=== PATIENT | female | born 1965 | race Caucasian/White ===

== ENCOUNTER 2018-04-11 06:58 | Inpatient (IN) ==
[2018-04-11] MEDS ORDERED: Acetaminophen 325 MG Tablet PO PRN (14:22)
[2018-04-11] MEDS ORDERED: Bisacodyl 10 MG Supp RECTAL PRN (14:22)
[2018-04-11] MEDS ORDERED: Temazepam 15 MG Capsule PO PRN (14:22)
--- NOTE | 2018-04-11 14:22 | P.HP ---
History of Present Illness Primary Care Physician: Gordon Silver MD Chief Complaint: Abdominal pain History of Present Illness: This is a pleasant 53 y/o female who came to ER with Abdominal pain, she was already seen in ER and sent home, About 9 days ago, she developed left lower quadrant pain. She saw her primary physician 1 week ago and was started on ciprofloxacin. 2 days ago, she came to the emergency department with continued pain. Imaging revealed mild diverticulitis. The patient states that 2 nights ago, she had a fever of 101. She is not sure if she had a fever last night. She states that the pain increased yesterday. She states that she has not had a bowel movement for the last few days. She denies associated cough, congestion, vomiting, diarrhea. No melena or hematochezia. No urinary urgency, frequency, dysuria, hematuria. She states that she had one leftover hydrocodone from a prior ankle surgery and took that, otherwise she has been taking Tylenol for pain. She has been compliant with the ciprofloxacin and Flagyl including this morning. Symptoms are moderate in severity. Onset gradual. The pain is aggravated by touch and movement. The pain has now spread to diffusely across the lower abdomen. Transferred to [facility] continue antibiotics and will have evaluation by General Surgery Inpatient Certification: I certify that the inpatient services were ordered in accordance with Medicare regulations governing the order. This includes certification that hospital inpatient services are reasonable and necessary and in the case of services not specified as inpatient-only under 42 CFR 419.22(n), that they are appropriately provided as inpatient services in accordance to with the 2-midnight benchmark under 43 CFR 412.3(e) Review of Systems All other systems reviewed negative except as stated in HPI [facility] - History History Provided By: Patient - Medical History Medical History: Medical History (Last Reviewed 04/11/18 @ 07:29 by Emily Martinez MD) Asthma H/O: hysterectomy High cholesterol - Surgical History Surgical History: Surgical History (Last Reviewed 04/11/18 @ 07:29 by Emily Martinez MD) Hx of appendectomy Hx of tonsillectomy - Tobacco History Second Hand Smoke Exposure: No Smoking Status: Never smoker - Alcohol History How Often Do You Have a Drink Containing Alcohol: Monthly or less - Substance Use History Substance History: No History of Abuse - Immunization History Tetanus Immunization: Unsure Hx Influenza Vaccine This Season: Yes Medications and Allergies Allergies Allergy/AdvReac Type Severity Reaction Status Date / Time Penicillins Allergy Nausea Verified 04/11/18 07:17 Sulfa (Sulfonamide Allergy Nausea Verified 04/11/18 07:17 Antibiotics) Home Medications Medication Instructions Recorded Confirmed Type celecoxib [Celebrex] 200 mg PO DAILY 04/09/18 04/09/18 History fluticasone-vilanterol [Breo 1 inh INHALATION DAILY 04/09/18 04/09/18 History Ellipta] montelukast [Singulair] 10 mg PO QPM 04/09/18 04/09/18 History simvastatin 10 mg PO QPM 04/09/18 04/09/18 History Exam Vital signs: Vital Signs 04/11/18 14:01 Temperature 99.2 F Pulse Rate 112 H Respiratory Rate 18 Blood Pressure 115/56 L Pulse Oximetry 96 Narrative: GENERAL: Alert, well nourished, well appearing patient resting on the bed in no acute distress. SKIN: Focused skin assessment warm/dry. HEAD: Atraumatic. Normocephalic. EYES: Pupils equal and round. No scleral icterus. No injection or drainage. ENT: No nasal bleeding or discharge. Mucous membranes pink and moist. NECK: Trachea midline. No JVD. Spontaneous, painless full range of motion with no meningismus CARDIOVASCULAR: Tachycardic with a regular rhythm. No murmur appreciated. Extremities warm and well perfused with bounding peripheral pulses RESPIRATORY: No accessory muscle use. Clear to auscultation. Breath sounds equal bilaterally. Breathing easily and speaking in full sentences GASTROINTESTINAL: Abdomen soft, tender in left lower quadrant, less so in suprapubic region and right lower quadrant, nondistended. Normal bowel sounds. No rigid, rebound. MUSCULOSKELETAL: No obvious deformities. No clubbing. No cyanosis. No edema. Compartments are soft NEUROLOGICAL: Awake and alert. No obvious cranial nerve deficits. Motor grossly within normal limits. Normal speech. Sensation intact. Normal gait PSYCHIATRIC: Appropriate mood and affect; insight and judgment normal. Results - Imaging Abdomen/Pelvis CT 04/11/18 07:17 CONCLUSION: 1. Findings most consistent with proximal sigmoid diverticulitis with developing anterior perisigmoid abscess measuring 2.4 x 0.9 cm. A second 1.5 x 1.2 cm posterior collection slightly more inferiorly likely reflects a developing intramural abscess. Caprini VTE Risk Assessment Caprini VTE Risk Assessment: No/Low Risk (score <= 1) Caprini Risk Assessment Model: Point Value = 1 Point Value = 2 Point Value = 3 Point Value = 5 Age 41-60 Minor surgery BMI > 25 kg/m2 Swollen legs Varicose veins or History of unexplained or recurrent spontaneous Oral contraceptives or hormone replacement Sepsis (< 1 month) Serious lung disease, including pneumonia (< 1 month) Abnormal pulmonary function Acute myocardial infarction Congestive heart failure (< 1 month) History of inflammatory bowel disease Medical patient at bed rest Age 61-74 Arthroscopic surgery Major open surgery (> 45 min) Laparoscopic surgery (> 45 min) Malignancy Confined to bed (> 72 hours) Immobilizing plaster cast Central venous access Age >= 75 History of VTE Family history of VTE Factor V Leiden Prothrombin [id number] Lupus anticoagulant Anticardiolipin antibodies Elevated serum homocysteine Heparin-induced thrombocytopenia Other congenital or acquired thrombophilia Stroke (< 1 month) Elective arthroplasty Hip, pelvis, or leg fracture Acute spinal cord injury (< 1 month) Prophylaxis Regimen: Total Risk Factor Score Risk Level Prophylaxis Regimen 0-1 Low Early ambulation 2 Moderate Order ONE of the following: *Sequential Compression Device (SCD) *Heparin 5000 units SQ BID 3-4 Higher Order ONE of the following medications: *Heparin 5000 units SQ TID *Enoxaparin/Lovenox 40 mg SQ daily (WT < 150 kg, CrCl > 30 mL/min) *Enoxaparin/Lovenox 30 mg SQ daily (WT < 150 kg, CrCl > 10-29 mL/min) *Enoxaparin/Lovenox 30 mg SQ BID (WT < 150 kg, CrCl > 30 mL/min) AND/OR *Sequential Compression Device (SCD) 5 or more Highest Order ONE of the following medications: *Heparin 5000 units SQ TID (Preferred with Epidurals) *Enoxaparin/Lovenox 40 mg SQ daily (WT < 150 kg, CrCl > 30 mL/min) *Enoxaparin/Lovenox 30 mg SQ daily (WT < 150 kg, CrCl > 10-29 mL/min) *Enoxaparin/Lovenox 30 mg SQ BID (WT < 150 kg, CrCl > 30 mL/min) AND *Sequential Compression Device (SCD) Assessment and Plan - Plan 1. Diverticulitis of intestine with abscess Case discussed between ER specialist at [facility] with General database specialist doctor and recommended for transfer to main hospital for evaluation, with diagnosis of Diverticulitis. WBC 13.6 Hemoglobin 12.2, CT abdomen and pelvis Findings most consistent with proximal sigmoid diverticulitis with developing anterior perisigmoid abscess measuring 2.4 x 0.9 cm. A second 1.5 x 1.2 cm posterior collection slightly more inferiorly likely reflects a developing intramural abscess. will continue Flagyl and Cipro and following blood cultures Continue Pain medicine. 2. Hyperlipidemia continue Home medicine DVT prophylaxis with SCDs for possible procedure. Code Status: Full code. Discussed Condition With: patient, Nurse and ER Physician Doctor Emily Martinez Discharge Planning: Once cleared by General Surgery.
[2018-04-11] MEDS ORDERED: *morphine SULFATE 2 MG/ML PERIprocedure ONLY IV.PUSH PRN (14:32)
[2018-04-11] MEDS ORDERED: Ciprofloxacin 200 MG/100 ML 200 MG/100 ML PIGGYBACK IV.SIG SCH (15:00)
[2018-04-11] MEDS: Sod Chloride 0.9% Inj 1,000 ML IV.CONT SCH (15:03)
[2018-04-11] MEDS: Ciprofloxacin 200 MG/100 ML 200 MG/100 ML PIGGYBACK IV.SIG SCH (16:00)
[2018-04-11] MEDS: Morphine Sulfate Inj 2 MG/ML Vial IV.PUSH PRN ×3 (16:00→23:42)
[2018-04-11 20:04] LABS: Chol/HDL Ratio 2.4 Ratio; HDL Cholesterol 42.5 mg/dL (40.0-60.0)
--- NOTE | 2018-04-11 21:51 | P.PNCS ---
Subjective Colorectal Surgery Post Op Day #: 0 Interval history: Reviewed events - several days of LLQ, worse while on Ab's CT shows microperferation, small abscess No N/V min fever +F Hx colon cancer Objective Objective Remarks: Pe alert Abd - soft, tender LLQ, no mass, min tympany Assessment and Plan - Plan Imp: Diverticulitis - small abscess should respond to Ab's, no drainable abscess now adv diet Decr IVF may switch to PO ab's later, will hopefully avoid surgery Last colon several yrs ago - neg
[2018-04-12] MEDS: Ciprofloxacin 200 MG/100 ML 200 MG/100 ML PIGGYBACK IV.SIG SCH ×2 (04:31→15:28)
[2018-04-12] MEDS: Morphine Sulfate Inj 2 MG/ML Vial IV.PUSH PRN ×4 (04:36→21:43)
[2018-04-12] MEDS: Sod Chloride 0.9% Inj 1,000 ML IV.CONT SCH ×2 (04:42→14:11)
[2018-04-12 05:06] LABS: Baso % (Auto) 0.3 % (0.0-2.0); Eos # (Auto) 0.2 th/mm3 (0.0-0.4); Eos % (Auto) 2.5 % (0.0-4.0); Lymph # (Auto) 1.2 th/mm3 (1.0-4.8); Lymph % (Auto) 13.1 % (9.0-44.0); Mean Corpuscular HGB Conc 33.4 % (32.0-36.0); Mean Corpuscular Hemoglobin 27.4 pg (27.0-34.0); Mean Corpuscular Volume 81.9 fL (80.0-100.0); Mean Platelet Volume 9.2 fL (7.0-11.0); Mono # (Auto) 0.4 th/mm3 (0.0-0.9); Mono % (Auto) 4.4 % (0.0-8.0); Neut # (Auto) 7.4 th/mm3 (1.8-7.7); Neut % (Auto) 79.7 % (16.0-70.0); Platelet Count 191 th/mm3 (150-450); Red Blood Count 3.66 mil/mm3 (4.00-5.30); Red Cell Distribution Width 17.6 % (11.6-17.2); White Blood Count 9.3 th/mm3 (4.0-11.0)
[2018-04-12 05:38] LABS: Alanine Aminotransferase 25 U/L (10-53); Albumin 2.4 g/dL (3.4-5.0); Anion Gap 8 meq/L (5-15); Aspartate Aminotransferase 13 U/L (15-37); Blood Urea Nitrogen 6 mg/dL (7-18); Calcium 7.7 mg/dL (8.5-10.1); Carbon Dioxide 24.2 meq/L (21.0-32.0); Chloride 108 meq/L (98-107); Glomerular Filtration Rate Greater Than 89 mL/min (>89); Glucose,Random 91 mg/dL (74-106); Potassium 3.8 meq/L (3.5-5.1); Sodium 140 meq/L (136-145)
[2018-04-12 05:41] LABS: Alkaline Phosphatase 88 U/L (45-117)
--- NOTE | 2018-04-12 11:22 | P.PN ---
Subjective Interval history: This is a pleasant 53 y/o female who came to ER with Abdominal pain, she was already seen in ER and sent home, About 9 days ago, she developed left lower quadrant pain. She saw her primary physician 1 week ago and was started on ciprofloxacin. 2 days ago, she came to the emergency department with continued pain. Imaging revealed mild diverticulitis. The patient states that 2 nights ago, she had a fever of 101. She is not sure if she had a fever last night. She states that the pain increased yesterday. She states that she has not had a bowel movement for the last few days. She denies associated cough, congestion, vomiting, diarrhea. No melena or hematochezia. No urinary urgency, frequency, dysuria, hematuria. She states that she had one leftover hydrocodone from a prior ankle surgery and took that, otherwise she has been taking Tylenol for pain. She has been compliant with the ciprofloxacin and Flagyl including this morning. Symptoms are moderate in severity. Onset gradual. The pain is aggravated by touch and movement. The pain has now spread to diffusely across the lower abdomen. Transferred to [facility] continue antibiotics and will have evaluation by General Surgery 04/12: Seen in her bedroom, status post General telesales specialist evaluation, recommended to continue antibiotics, no drainable abscess, advanced diet as tolerated. avoid surgery. Physical Exam Vital signs: Vital Signs 04/11/18 14:01 04/11/18 16:00 04/11/18 16:02 Temperature 99.2 F 98.9 F Pulse Rate 112 H 115 H Respiratory Rate 18 18 18 Blood Pressure 115/56 L 117/58 L Pulse Oximetry 96 97 04/11/18 20:00 04/12/18 00:00 04/12/18 01:00 Temperature 99.4 F 99.7 F H Pulse Rate 109 H 106 H Respiratory Rate 17 17 16 Blood Pressure 112/56 L 103/55 L Pulse Oximetry 96 97 04/12/18 04:00 04/12/18 07:05 04/12/18 07:41 Temperature 98.4 F 97.8 F Pulse Rate 93 H 102 H 90 Respiratory Rate 16 16 18 Blood Pressure 101/59 L 108/55 L Pulse Oximetry 96 94 L Intake & Output 04/11/18 04/12/18 04/12/18 18:59 06:59 18:59 Intake Total 200 / 200 1100 / 1100 Balance 200 / 200 1100 / 1100 Intake: IV 200 / 200 1100 / 1100 NS Inj 1,000 ML @ 75 mls/hr IV. 1000 / 1000 CONT .[id number] LEÓN Rx#:[id number] Cipro 200 MG/100 ML Inj 200 mg 100 / 100 In 100 ml @ 100 mls/hr IV.SIG Q12H LEÓN Rx#:[id number] Flagyl 500 MG Inj 100 ML @ 100 100 / 100 100 / 100 mls/hr IV.SIG Q8H LEÓN Rx#: [id number] Other: # Voids 1 2 Date of Last Bowel Movement 04/09/18 04/09/18 Narrative: GENERAL: Alert, well nourished, well appearing patient resting on the bed in no acute distress. SKIN: Focused skin assessment warm/dry. HEAD: Atraumatic. Normocephalic. EYES: Pupils equal and round. No scleral icterus. No injection or drainage. ENT: No nasal bleeding or discharge. Mucous membranes pink and moist. NECK: Trachea midline. No JVD. Spontaneous, painless full range of motion with no meningismus CARDIOVASCULAR: Tachycardic with a regular rhythm. No murmur appreciated. Extremities warm and well perfused with bounding peripheral pulses RESPIRATORY: No accessory muscle use. Clear to auscultation. Breath sounds equal bilaterally. Breathing easily and speaking in full sentences GASTROINTESTINAL: Abdomen soft, tender in left lower quadrant, less so in suprapubic region and right lower quadrant, nondistended. Normal bowel sounds. MUSCULOSKELETAL: No obvious deformities. No clubbing. No cyanosis. No edema. Compartments are soft NEUROLOGICAL: Awake and alert. No obvious cranial nerve deficits. Motor grossly within normal limits. Normal speech. Sensation intact. Normal gait PSYCHIATRIC: Appropriate mood and affect; insight and judgment normal. Results - Labs CBC & Chem 7: 04/12/18 04:11 04/12/18 04:11 Laboratory Results - last 24 hr 04/11/18 04/11/18 04/12/18 18:45 18:45 04:11 WBC 9.3 RBC 3.66 L Hgb 10.0 L D Hct 30.0 L MCV 81.9 MCH 27.4 MCHC 33.4 RDW 17.6 H Plt Count 191 MPV 9.2 Neut % (Auto) 79.7 H Lymph % (Auto) 13.1 [place] % (Auto) 4.4 Eos % (Auto) 2.5 Baso % (Auto) 0.3 Neut # (Auto) 7.4 Lymph # (Auto) 1.2 [place] # (Auto) 0.4 Eos # (Auto) 0.2 Baso # (Auto) 0.0 WBC Differential . Differential Comment Auto diff final Sodium Potassium Chloride Carbon Dioxide Anion Gap BUN Creatinine Estimated GFR Random Glucose Calcium Total Bilirubin AST ALT Alkaline Phosphatase Total Protein Albumin Triglycerides 62 Cholesterol 102 L LDL Cholesterol, Calc 47 HDL Cholesterol 42.5 Cholesterol/HDL Ratio 2.40 Vitamin B12 465 TSH 2.430 04/12/18 04:11 WBC RBC Hgb Hct MCV MCH MCHC RDW Plt Count MPV Neut % (Auto) Lymph % (Auto) [place] % (Auto) Eos % (Auto) Baso % (Auto) Neut # (Auto) Lymph # (Auto) [place] # (Auto) Eos # (Auto) Baso # (Auto) WBC Differential Differential Comment Sodium 140 Potassium 3.8 Chloride 108 H Carbon Dioxide 24.2 Anion Gap 8 BUN 6 L Creatinine 0.65 Estimated GFR Greater than 89 Random Glucose 91 Calcium 7.7 L D Total Bilirubin 0.5 AST 13 L ALT 25 Alkaline Phosphatase 88 Total Protein 6.0 L D Albumin 2.4 L D Triglycerides Cholesterol LDL Cholesterol, Calc HDL Cholesterol Cholesterol/HDL Ratio Vitamin B12 TSH - Imaging Abdomen/Pelvis CT 04/11/18 07:17 CONCLUSION: 1. Findings most consistent with proximal sigmoid diverticulitis with developing anterior perisigmoid abscess measuring 2.4 x 0.9 cm. A second 1.5 x 1.2 cm posterior collection slightly more inferiorly likely reflects a developing intramural abscess. Assessment and Plan - Plan 1. Diverticulitis of intestine with abscess Case discussed between ER specialist at [facility] [place] with General telesales specialist doctor Arvizu and recommended for transfer to [facility] for evaluation, with diagnosis of Diverticulitis. WBC 13.6 Hemoglobin 12.2, CT abdomen and pelvis Findings most consistent with proximal sigmoid diverticulitis with developing anterior perisigmoid abscess measuring 2.4 x 0.9 cm. A second 1.5 x 1.2 cm posterior collection slightly more inferiorly likely reflects a developing intramural abscess. will continue Flagyl and Cipro and following blood cultures Continue Pain medicine. at this time stable seen in her bedroom, non drainable abscess as per general telesales specialist, continue antibiotics and advance diet. 2. Hyperlipidemia continue Home medicine DVT prophylaxis with SCDs for possible procedure. Code Status: Full Code. Discussed Condition With: Patient and her in the room. Discharge Planning: Expected for tomorrow
[2018-04-12 14:31] LABS: Hemoglobin A1c 5.9 % (4.3-6.0)
--- NOTE | 2018-04-12 22:53 | P.PNCS ---
Subjective Colorectal Surgery Post Op Day #: 0 Interval history: afebrile, VSS UO good more comfortable elinor PO Objective Result Diagrams: 04/12/18 04:11 04/12/18 04:11 Objective Remarks: Pe alert Abd - soft, less tender LLQ, no mass, min tympany Assessment and Plan - Plan Imp: Diverticulitis - small abscess should respond to Ab's, no drainable abscess now adv diet Decr IVF rto if DC'd home may switch to PO ab's tomorrow
[2018-04-13] MEDS: Morphine Sulfate Inj 2 MG/ML Vial IV.PUSH PRN ×2 (03:27→11:15)
[2018-04-13] MEDS: Ciprofloxacin 200 MG/100 ML 200 MG/100 ML PIGGYBACK IV.SIG SCH (03:27)
--- NOTE | 2018-04-13 11:00 | P.PN ---
Subjective Interval history: This is a pleasant 53 y/o female who came to ER with Abdominal pain, she was already seen in ER and sent home, About 9 days ago, she developed left lower quadrant pain. She saw her primary physician 1 week ago and was started on ciprofloxacin. 2 days ago, she came to the emergency department with continued pain. Imaging revealed mild diverticulitis. The patient states that 2 nights ago, she had a fever of 101. She is not sure if she had a fever last night. She states that the pain increased yesterday. She states that she has not had a bowel movement for the last few days. She denies associated cough, congestion, vomiting, diarrhea. No melena or hematochezia. No urinary urgency, frequency, dysuria, hematuria. She states that she had one leftover hydrocodone from a prior ankle surgery and took that, otherwise she has been taking Tylenol for pain. She has been compliant with the ciprofloxacin and Flagyl including this morning. Symptoms are moderate in severity. Onset gradual. The pain is aggravated by touch and movement. The pain has now spread to diffusely across the lower abdomen. Transferred to [facility] continue antibiotics and will have evaluation by General Surgery 04/12: Seen in her bedroom, status post General client care specialist evaluation, recommended to continue antibiotics, no drainable abscess, advanced diet as tolerated. avoid surgery. 04/13: Stable in her bedroom, continue with some pain, not able to be discharged today, will continue IV antibiotics for 24 hours more and follow in am tomorrow if improving more will go home on by mouth antibiotics, no nausea, vomit or diarrhea. Physical Exam Vital signs: Vital Signs 04/12/18 11:35 04/12/18 14:23 04/12/18 16:00 Temperature 98.2 F 98.4 F Pulse Rate 94 H 89 Respiratory Rate 18 18 Blood Pressure 105/57 L 104/57 L Pulse Oximetry 95 97 04/12/18 20:00 04/13/18 00:00 04/13/18 04:00 Temperature 98.3 F 98.8 F 98.3 F Pulse Rate 88 95 H 88 Respiratory Rate 16 17 17 Blood Pressure 122/54 L 107/56 L 120/58 L Pulse Oximetry 98 98 97 04/13/18 08:00 Temperature 97.8 F Pulse Rate 90 Respiratory Rate 16 Blood Pressure 139/60 Pulse Oximetry 98 Intake & Output 04/12/18 04/13/18 04/13/18 18:59 06:59 18:59 Intake Total 1400 / 1400 200 / 200 100 / 100 Balance 1400 / 1400 200 / 200 100 / 100 Intake: IV 600 / 600 200 / 200 100 / 100 NS Inj 1,000 ML @ 60 mls/hr IV. 300 / 300 CONT .[id number] LEÓN Rx#:[id number] Cipro 200 MG/100 ML Inj 200 mg 100 / 100 100 / 100 In 100 ml @ 100 mls/hr IV.SIG Q12H LEÓN Rx#:[id number] Flagyl 500 MG Inj 100 ML @ 100 200 / 200 100 / 100 100 / 100 mls/hr IV.SIG Q8H LEÓN Rx#: [id number] Oral 800 / 800 Other: # Voids 3 2 1 Date of Last Bowel Movement 04/09/18 04/09/18 Narrative: GENERAL: No acute distress. SKIN: Focused skin assessment warm/dry. HEAD: Atraumatic. Normocephalic. EYES: Pupils equal and round. No scleral icterus. No injection or drainage. ENT: No nasal bleeding or discharge. Mucous membranes pink and moist. NECK: Trachea midline. No JVD. CARDIOVASCULAR: normal sinus rhythm, S1, S2 no S3. RESPIRATORY: Breath sounds equal bilaterally. GASTROINTESTINAL: Abdomen soft, tender on palpation on lower abdominal and pelvic quadrants. MUSCULOSKELETAL: No obvious deformities. No clubbing. No cyanosis. No edema. Compartments are soft NEUROLOGICAL: No focal deficits. Results - Labs CBC & Chem 7: 04/12/18 04:11 04/12/18 04:11 Laboratory Results - last 24 hr 04/11/18 18:45 Hemoglobin A1c 5.9 Assessment and Plan - Plan 1. Diverticulitis of intestine with abscess Case discussed between ER specialist at [place] [facility] with General client care specialist doctor and recommended for transfer to [facility] for evaluation, with diagnosis of Diverticulitis. WBC 13.6 Hemoglobin 12.2, CT abdomen and pelvis Findings most consistent with proximal sigmoid diverticulitis with developing anterior perisigmoid abscess measuring 2.4 x 0.9 cm. A second 1.5 x 1.2 cm posterior collection slightly more inferiorly likely reflects a developing intramural abscess. will continue Flagyl and Cipro and following blood cultures Continue Pain medicine. at this time stable seen in her bedroom, non drainable abscess as per general client care specialist, continue antibiotics and advance diet. 2. Hyperlipidemia continue Home medicine DVT prophylaxis with SCDs for possible procedure. Code Status: Full code. Discussed Condition With: patient, her in the room. Discharge Planning: Expected for tomorrow.
[2018-04-13] MEDS ORDERED: Ciprofloxacin 200 MG/100 ML 200 MG/100 ML PIGGYBACK IV.SIG ONE (12:00)
[2018-04-13] MEDS ORDERED: Ciprofloxacin 400 MG/200 ML 400 MG/200 ML PIGGYBACK IV.SIG SCH ×2 (17:00→21:00)
[2018-04-13] MEDS: Sod Chloride 0.9% Inj 1,000 ML IV.CONT SCH (22:36)
[2018-04-13] MEDS: Zolpidem Tartrate 5 MG Tablet PO PRN (23:05)
[2018-04-14] MEDS: Sod Chloride 0.9% Inj 1,000 ML IV.CONT SCH ×4 (01:02→22:30)
--- NOTE | 2018-04-14 12:15 | P.PN ---
Subjective Interval history: This is a pleasant 53 y/o female who came to ER with Abdominal pain, she was already seen in ER and sent home, About 9 days ago, she developed left lower quadrant pain. She saw her primary physician 1 week ago and was started on ciprofloxacin. 2 days ago, she came to the emergency department with continued pain. Imaging revealed mild diverticulitis. The patient states that 2 nights ago, she had a fever of 101. She is not sure if she had a fever last night. She states that the pain increased yesterday. She states that she has not had a bowel movement for the last few days. She denies associated cough, congestion, vomiting, diarrhea. No melena or hematochezia. No urinary urgency, frequency, dysuria, hematuria. She states that she had one leftover hydrocodone from a prior ankle surgery and took that, otherwise she has been taking Tylenol for pain. She has been compliant with the ciprofloxacin and Flagyl including this morning. Symptoms are moderate in severity. Onset gradual. The pain is aggravated by touch and movement. The pain has now spread to diffusely across the lower abdomen. Transferred to [facility] continue antibiotics and will have evaluation by General Surgery 04/12: Seen in her bedroom, status post General cardiopulmonary specialist evaluation, recommended to continue antibiotics, no drainable abscess, advanced diet as tolerated. avoid surgery. 04/13: Stable in her bedroom, continue with some pain, not able to be discharged today, will continue IV antibiotics for 24 hours more and follow in am tomorrow if improving more will go home on by mouth antibiotics. 04/14: patient states continue in pain, discussed with nurse and patient and after surgical evaluation for today recommended to remain in house another day. no nausea, vomit or diarrhea. Physical Exam Vital signs: Vital Signs 04/13/18 16:00 04/13/18 20:00 04/14/18 00:00 Temperature 99.0 F 98.1 F 98 F Pulse Rate 88 81 92 H Respiratory Rate 16 18 18 Blood Pressure 114/53 L 119/55 L 113/59 L Pulse Oximetry 97 96 96 04/14/18 04:00 04/14/18 08:00 Temperature 98 F 97.8 F Pulse Rate 80 88 Respiratory Rate 18 16 Blood Pressure 123/55 L 115/55 L Pulse Oximetry 94 L 97 Intake & Output 04/13/18 04/14/18 04/14/18 18:59 06:59 18:59 Intake Total 700 / 700 1400 / 1400 100 / 100 Balance 700 / 700 1400 / 1400 100 / 100 Weight 68.2 kg Intake: IV 100 / 100 1000 / 1000 100 / 100 NS Inj 1,000 ML @ 60 mls/hr IV. 700 / 700 CONT .[id number] LEÓN Rx#:[id number] Rocephin Inj 1,000 MG In NS Inj 100 / 100 100 ML @ 200 mls/hr IV.SIG Q24H LEÓN Rx#:[id number] Flagyl 500 MG Inj 100 ML @ 100 100 / 100 200 / 200 100 / 100 mls/hr IV.SIG Q8H LEÓN Rx#: [id number] Oral 600 / 600 400 / 400 Other: # Voids 1 4 1 Date of Last Bowel Movement 04/09/18 04/13/18 04/11/18 # Bowel Movements 1 1 Narrative: GENERAL: No acute distress. SKIN: Focused skin assessment warm/dry. HEAD: Atraumatic. Normocephalic. EYES: Pupils equal and round. No scleral icterus. No injection or drainage. ENT: No nasal bleeding or discharge. Mucous membranes pink and moist. NECK: Trachea midline. No JVD. CARDIOVASCULAR: normal sinus rhythm, S1, S2 no S3. RESPIRATORY: Breath sounds equal bilaterally. GASTROINTESTINAL: Abdomen soft, tender on palpation on lower abdominal and pelvic quadrants. MUSCULOSKELETAL: No obvious deformities. No clubbing. No cyanosis. No edema. Compartments are soft NEUROLOGICAL: No focal deficits. Results - Labs CBC & Chem 7: 04/12/18 04:11 04/12/18 04:11 Assessment and Plan - Plan 1. Diverticulitis of intestine with abscess Case discussed between ER specialist at [facility] with General cardiopulmonary specialist doctor and recommended for transfer to [facility] for evaluation, with diagnosis of Diverticulitis. WBC 13.6 Hemoglobin 12.2, CT abdomen and pelvis Findings most consistent with proximal sigmoid diverticulitis with developing anterior perisigmoid abscess measuring 2.4 x 0.9 cm. A second 1.5 x 1.2 cm posterior collection slightly more inferiorly likely reflects a developing intramural abscess. will continue Flagyl and Cipro and following blood cultures Continue Pain medicine. at this time stable seen in her bedroom, non drainable abscess as per general cardiopulmonary specialist, continue antibiotics and advance diet. 2. Hyperlipidemia continue Home medicine DVT prophylaxis with SCDs for possible procedure. No changes to anterior assessment. Code Status: Full code Discussed Condition With: patient, nurse. Discharge Planning: Expected for tomorrow.
[2018-04-14] MEDS: Zolpidem Tartrate 5 MG Tablet PO PRN (22:42)
[2018-04-15 06:01] LABS: Hematocrit 32.1 % (35.0-46.0); Hemoglobin 10.6 gm/dL (11.6-15.3); Mean Corpuscular Hemoglobin 26.9 pg (27.0-34.0); Mean Corpuscular Volume 81.5 fL (80.0-100.0); Platelet Count 293 th/mm3 (150-450); Red Blood Count 3.94 mil/mm3 (4.00-5.30); Red Cell Distribution Width 17.6 % (11.6-17.2); White Blood Count 6.3 th/mm3 (4.0-11.0)
--- NOTE | 2018-04-15 08:17 | P.PN ---
Subjective Interval history: This is a pleasant 53 y/o female who came to ER with Abdominal pain, she was already seen in ER and sent home, About 9 days ago, she developed left lower quadrant pain. She saw her primary physician 1 week ago and was started on ciprofloxacin. 2 days ago, she came to the emergency department with continued pain. Imaging revealed mild diverticulitis. The patient states that 2 nights ago, she had a fever of 101. She is not sure if she had a fever last night. She states that the pain increased yesterday. She states that she has not had a bowel movement for the last few days. She denies associated cough, congestion, vomiting, diarrhea. No melena or hematochezia. No urinary urgency, frequency, dysuria, hematuria. She states that she had one leftover hydrocodone from a prior ankle surgery and took that, otherwise she has been taking Tylenol for pain. She has been compliant with the ciprofloxacin and Flagyl including this morning. Symptoms are moderate in severity. Onset gradual. The pain is aggravated by touch and movement. The pain has now spread to diffusely across the lower abdomen. Transferred to [facility] continue antibiotics and will have evaluation by General Surgery 04/12: Seen in her bedroom, status post General certified coding specialist evaluation, recommended to continue antibiotics, no drainable abscess, advanced diet as tolerated. avoid surgery. 04/13: Stable in her bedroom, continue with some pain, not able to be discharged today, will continue IV antibiotics for 24 hours more and follow in am tomorrow if improving more will go home on by mouth antibiotics. 04/14: patient states continue in pain, discussed with nurse and patient and after surgical evaluation for today recommended to remain in house another day. 04/15: seen in her bedroom continue with Mild abdominal pain specially on Left lower quadrant, no nausea, vomit afebrile, no leukocytosis. Physical Exam Vital signs: Vital Signs 04/14/18 12:00 04/14/18 16:00 04/14/18 20:00 Temperature 98.0 F 98.2 F 98.3 F Pulse Rate 80 69 56 L Respiratory Rate 16 16 20 Blood Pressure 126/61 124/56 L 115/53 L Pulse Oximetry 99 95 98 04/14/18 21:00 04/15/18 00:00 Temperature 98.1 F Pulse Rate 77 Respiratory Rate 3 L 18 Blood Pressure 103/53 L Pulse Oximetry 97 Intake & Output 04/14/18 04/15/18 04/15/18 18:59 06:59 18:59 Intake Total 2079 / 0 1650 / 1650 100 / 100 Balance 2079 1650 / 1650 100 / 100 Weight 69.5 kg Intake: IV 1300 / 1300 1200 / 1200 100 / 100 NS Inj 1,000 ML @ 60 mls/hr IV. 1000 / 1000 1000 / 1000 CONT .[id number] LEÓN Rx#:[id number] Rocephin Inj 1,000 MG In NS Inj 100 / 100 100 ML @ 200 mls/hr IV.SIG Q24H LEÓN Rx#:[id number] Flagyl 500 MG Inj 100 ML @ 100 200 / 200 100 / 100 100 / 100 mls/hr IV.SIG Q8H LEÓN Rx#: [id number] Oral 780 / 780 450 / 450 Other: # Voids 1 2 Date of Last Bowel Movement 04/11/18 04/13/18 # Bowel Movements 1 Narrative: GENERAL: No acute distress. SKIN: Focused skin assessment warm/dry. HEAD: Atraumatic. Normocephalic. EYES: Pupils equal and round. No scleral icterus. No injection or drainage. ENT: No nasal bleeding or discharge. Mucous membranes pink and moist. NECK: Trachea midline. No JVD. CARDIOVASCULAR: normal sinus rhythm, S1, S2 no S3. RESPIRATORY: Breath sounds equal bilaterally. GASTROINTESTINAL: Abdomen soft, tender on palpation on lower abdominal and pelvic quadrants. MUSCULOSKELETAL: No obvious deformities. No clubbing. No cyanosis. No edema. Compartments are soft NEUROLOGICAL: No focal deficits. Results - Labs CBC & Chem 7: 04/15/18 05:22 04/12/18 04:11 Laboratory Results - last 24 hr 04/15/18 05:22 WBC 6.3 RBC 3.94 L Hgb 10.6 L Hct 32.1 L MCV 81.5 MCH 26.9 L MCHC 33.0 RDW 17.6 H Plt Count 293 D MPV 9.0 Assessment and Plan - Plan 1. Diverticulitis of intestine with abscess Case discussed between ER specialist at [facility] with General certified coding specialist doctor and recommended for transfer to [facility] for evaluation, with diagnosis of Diverticulitis. WBC 13.6 Hemoglobin 12.2, CT abdomen and pelvis Findings most consistent with proximal sigmoid diverticulitis with developing anterior perisigmoid abscess measuring 2.4 x 0.9 cm. A second 1.5 x 1.2 cm posterior collection slightly more inferiorly likely reflects a developing intramural abscess. will continue Flagyl and Cipro and following blood cultures Continue Pain medicine. at this time stable seen in her bedroom, non drainable abscess as per general certified coding specialist, continue antibiotics and advance diet. Clear from Medicine standpoint for discharge awaiting final by General Surgery. 2. Hyperlipidemia continue Home medicine DVT prophylaxis with SCDs Code Status: Full code. Discussed Condition With: Patient and Nurse Discharge Planning: Expected later today.
[2018-04-15] MEDS: Sod Chloride 0.9% Inj 1,000 ML IV.CONT SCH ×2 (11:03→13:24)
[2018-04-15] MEDS: Montelukast 10 MG Tablet PO SCH (16:54)
[2018-04-16] MEDS: Sod Chloride 0.9% Inj 1,000 ML IV.CONT SCH (04:11)
[2018-04-16] MEDS: Montelukast 10 MG Tablet PO SCH (09:29)
--- NOTE | 2018-04-16 14:02 | P.PN ---
Subjective Interval history: This is a pleasant 53 y/o female who came to ER with Abdominal pain, she was already seen in ER and sent home, About 9 days ago, she developed left lower quadrant pain. She saw her primary physician 1 week ago and was started on ciprofloxacin. 2 days ago, she came to the emergency department with continued pain. Imaging revealed mild diverticulitis. The patient states that 2 nights ago, she had a fever of 101. She is not sure if she had a fever last night. She states that the pain increased yesterday. She states that she has not had a bowel movement for the last few days. She denies associated cough, congestion, vomiting, diarrhea. No melena or hematochezia. No urinary urgency, frequency, dysuria, hematuria. She states that she had one leftover hydrocodone from a prior ankle surgery and took that, otherwise she has been taking Tylenol for pain. She has been compliant with the ciprofloxacin and Flagyl including this morning. Symptoms are moderate in severity. Onset gradual. The pain is aggravated by touch and movement. The pain has now spread to diffusely across the lower abdomen. Transferred to [facility] continue antibiotics and will have evaluation by General Surgery 04/12: Seen in her bedroom, status post General laboratory technical specialist evaluation, recommended to continue antibiotics, no drainable abscess, advanced diet as tolerated. avoid surgery. 04/13: Stable in her bedroom, continue with some pain, not able to be discharged today, will continue IV antibiotics for 24 hours more and follow in am tomorrow if improving more will go home on by mouth antibiotics. 04/14: patient states continue in pain, discussed with nurse and patient and after surgical evaluation for today recommended to remain in house another day. 04/15: seen in her bedroom continue with Mild abdominal pain specially on Left lower quadrant, afebrile no leukocytosis 04/16: Patient seen in her bedroom in the presence of her , okay to discharge home, Doctor discharged her since 04/12/18 but she continue in pain was followed by [facility] rectal surgery on the weekend and antibiotics changed, but will continue by mouth medicines on discharge for seven more days she is been receiving IV antibiotics since 04/11/18. okay to discharge home, no nausea, vomit or diarrhea. Physical Exam Vital signs: Vital Signs 04/15/18 16:00 04/15/18 20:00 04/16/18 00:00 Temperature 97.9 F 98.7 F 98.0 F Pulse Rate 85 90 88 Respiratory Rate 18 18 17 Blood Pressure 130/62 123/59 L 123/62 Pulse Oximetry 97 99 97 04/16/18 04:00 04/16/18 08:00 04/16/18 12:00 Temperature 98.0 F 98.1 F 98.0 F Pulse Rate 83 84 71 Respiratory Rate 18 Blood Pressure 118/58 L 120/57 L 107/51 L Pulse Oximetry 98 98 96 Intake & Output 04/15/18 04/16/18 04/16/18 18:59 06:59 18:59 Intake Total 1300 / 1300 1000 / 1000 Balance 1300 / 1300 1000 / 1000 Weight 69.5 kg Intake: IV 1300 / 1300 1000 / 1000 NS Inj 1,000 ML @ 60 mls/hr IV. 1000 / 1000 1000 / 1000 CONT .[id number] LEÓN Rx#:[id number] Rocephin Inj 1,000 MG In NS Inj 100 / 100 100 ML @ 200 mls/hr IV.SIG Q24H LEÓN Rx#:[id number] Flagyl 500 MG Inj 100 ML @ 100 200 / 200 mls/hr IV.SIG Q8H LEÓN Rx#: [id number] Other: # Voids 2 Date of Last Bowel Movement 04/13/18 04/13/18 Narrative: GENERAL: No acute distress. SKIN: Focused skin assessment warm/dry. HEAD: Atraumatic. Normocephalic. EYES: Pupils equal and round. No scleral icterus. No injection or drainage. ENT: No nasal bleeding or discharge. Mucous membranes pink and moist. NECK: Trachea midline. No JVD. CARDIOVASCULAR: normal sinus rhythm, S1, S2 no S3. RESPIRATORY: Breath sounds equal bilaterally. GASTROINTESTINAL: Abdomen soft, tender on palpation on lower abdominal and pelvic quadrants. MUSCULOSKELETAL: No obvious deformities. No clubbing. No cyanosis. No edema. Compartments are soft NEUROLOGICAL: No focal deficits. Results - Labs CBC & Chem 7: 04/15/18 05:22 04/12/18 04:11 Laboratory Results - last 24 hr 04/11/18 18:45 Vit D 1,25-Dihydroxy 45 Assessment and Plan - Plan 1. Diverticulitis of intestine with abscess Case discussed between ER specialist at [facility] with General laboratory technical specialist doctor and recommended for transfer to [facility] for evaluation, with diagnosis of Diverticulitis. WBC 13.6 Hemoglobin 12.2, CT abdomen and pelvis Findings most consistent with proximal sigmoid diverticulitis with developing anterior perisigmoid abscess measuring 2.4 x 0.9 cm. A second 1.5 x 1.2 cm posterior collection slightly more inferiorly likely reflects a developing intramural abscess. will continue Flagyl and Cipro and following blood cultures Continue Pain medicine. at this time stable seen in her bedroom, non drainable abscess as per general laboratory technical specialist, continue antibiotics and advance diet. will discharge home on Flagyl and Cipro by mouth for seven more days. 2. Hyperlipidemia continue Home medicine DVT prophylaxis with SCDs Code Status: Full code. Discussed Condition With: Patient and nurse Miss Greer and on MDR, her in the room. Discharge Planning: Discharge Home today.
--- NOTE | 2018-04-16 14:05 | P.DS ---
Date of admission: 04/11/18 13:54 Primary care physician: Gordon Silver MD Attending physician on discharge: Rambo Boyd Anticipated date of discharge: 04/16/18 Brief History from admission: This is a pleasant 53 y/o female who came to ER with Abdominal pain, she was already seen in ER and sent home, About 9 days ago, she developed left lower quadrant pain. She saw her primary physician 1 week ago and was started on ciprofloxacin. 2 days ago, she came to the emergency department with continued pain. Imaging revealed mild diverticulitis. The patient states that 2 nights ago, she had a fever of 101. She is not sure if she had a fever last night. She states that the pain increased yesterday. She states that she has not had a bowel movement for the last few days. She denies associated cough, congestion, vomiting, diarrhea. No melena or hematochezia. No urinary urgency, frequency, dysuria, hematuria. She states that she had one leftover hydrocodone from a prior ankle surgery and took that, otherwise she has been taking Tylenol for pain. She has been compliant with the ciprofloxacin and Flagyl including this morning. Symptoms are moderate in severity. Onset gradual. The pain is aggravated by touch and movement. The pain has now spread to diffusely across the lower abdomen. Transferred to [facility] continue antibiotics and will have evaluation by General Surgery DS: Diagnosis - Discharge Diagnosis (1) Diverticulitis large intestine Status: Acute (2) Diverticulitis of colon with perforation Status: Acute DS: Summary Hospital Course: This is a pleasant 53 y/o female who came to ER with Abdominal pain, she was already seen in ER and sent home, About 9 days ago, she developed left lower quadrant pain. She saw her primary physician 1 week ago and was started on ciprofloxacin. 2 days ago, she came to the emergency department with continued pain. Imaging revealed mild diverticulitis. The patient states that 2 nights ago, she had a fever of 101. She is not sure if she had a fever last night. She states that the pain increased yesterday. She states that she has not had a bowel movement for the last few days. She denies associated cough, congestion, vomiting, diarrhea. No melena or hematochezia. No urinary urgency, frequency, dysuria, hematuria. She states that she had one leftover hydrocodone from a prior ankle surgery and took that, otherwise she has been taking Tylenol for pain. She has been compliant with the ciprofloxacin and Flagyl including this morning. Symptoms are moderate in severity. Onset gradual. The pain is aggravated by touch and movement. The pain has now spread to diffusely across the lower abdomen. Transferred to [facility] continue antibiotics and will have evaluation by General Surgery 04/12: Seen in her bedroom, status post General electronic publishing specialist evaluation, recommended to continue antibiotics, no drainable abscess, advanced diet as tolerated. avoid surgery. 04/13: Stable in her bedroom, continue with some pain, not able to be discharged today, will continue IV antibiotics for 24 hours more and follow in am tomorrow if improving more will go home on by mouth antibiotics. 04/14: patient states continue in pain, discussed with nurse and patient and after surgical evaluation for today recommended to remain in house another day. 04/15: seen in her bedroom continue with Mild abdominal pain specially on Left lower quadrant, afebrile no leukocytosis 04/16: Patient seen in her bedroom in the presence of her , okay to discharge home, Doctor Arvizu discharged her since 04/12/18 but she continue in pain was followed by [facility] rectal surgery on the weekend and antibiotics changed, but will continue by mouth medicines on discharge for seven more days she is been receiving IV antibiotics since 04/11/18. okay to discharge home, no nausea, vomit or diarrhea. Assessment and Plan - Plan 1. Diverticulitis of intestine with abscess Case discussed between ER specialist at [facility] with General electronic publishing specialist doctor Arvizu and recommended for transfer to [facility] for evaluation, with diagnosis of Diverticulitis. WBC 13.6 Hemoglobin 12.2, CT abdomen and pelvis Findings most consistent with proximal sigmoid diverticulitis with developing anterior perisigmoid abscess measuring 2.4 x 0.9 cm. A second 1.5 x 1.2 cm posterior collection slightly more inferiorly likely reflects a developing intramural abscess. will continue Flagyl and Cipro and following blood cultures Continue Pain medicine. at this time stable seen in her bedroom, non drainable abscess as per general electronic publishing specialist, continue antibiotics and advance diet. will discharge home on Flagyl and Cipro by mouth for seven more days. 2. Hyperlipidemia continue Home medicine DVT prophylaxis with SCDs Code Status: Full code. Discussed Condition With: Patient and nurse Miss Greer and on MDR, her in the room. Discharge Planning: Discharge Home today. - Time Spent with Patient Total time spent providing and/or coordinating discharge services: Greater than 30 minutes - Quality: VTE Deep Vein Thrombosis/Pulmonary Embolism Present on Admission: No Exam Vital signs: Vital Signs 04/15/18 16:00 04/15/18 20:00 04/16/18 00:00 Temperature 97.9 F 98.7 F 98.0 F Pulse Rate 85 90 88 Respiratory Rate 18 18 17 Blood Pressure 130/62 123/59 L 123/62 Pulse Oximetry 97 99 97 04/16/18 04:00 04/16/18 08:00 04/16/18 12:00 Temperature 98.0 F 98.1 F 98.0 F Pulse Rate 83 84 71 Respiratory Rate 18 16 18 Blood Pressure 118/58 L 120/57 L 107/51 L Pulse Oximetry 98 98 96 Intake & Output 04/15/18 04/16/18 04/16/18 18:59 06:59 18:59 Intake Total 1300 / 1300 1000 / 1000 Balance 1300 / 1300 1000 / 1000 Weight 69.5 kg Intake: IV 1300 / 1300 1000 / 1000 NS Inj 1,000 ML @ 60 mls/hr IV. 1000 / 1000 1000 / 1000 CONT .[id number] LEÓN Rx#:[id number] Rocephin Inj 1,000 MG In NS Inj 100 / 100 100 ML @ 200 mls/hr IV.SIG Q24H LEÓN Rx#:[id number] Flagyl 500 MG Inj 100 ML @ 100 200 / 200 mls/hr IV.SIG Q8H LEÓN Rx#: [id number] Other: # Voids 2 Date of Last Bowel Movement 04/13/18 04/13/18 Narrative: GENERAL: No acute distress. SKIN: Focused skin assessment warm/dry. HEAD: Atraumatic. Normocephalic. EYES: Pupils equal and round. No scleral icterus. No injection or drainage. ENT: No nasal bleeding or discharge. Mucous membranes pink and moist. NECK: Trachea midline. No JVD. CARDIOVASCULAR: normal sinus rhythm, S1, S2 no S3. RESPIRATORY: Breath sounds equal bilaterally. GASTROINTESTINAL: Abdomen soft, tender on palpation on lower abdominal and pelvic quadrants. MUSCULOSKELETAL: No obvious deformities. No clubbing. No cyanosis. No edema. Compartments are soft NEUROLOGICAL: No focal deficits. Results Procedures completed during hospitalization: None Labs on day of discharge: Labs from last 24 hours 04/11/18 18:45 Vit D 1,25-Dihydroxy 45 Discharge Plan - Discharge Disposition Patient Disposition: 01 Discharge Home - Discharge Condition Condition: Good - Discharge Order Discharge Orders: Discharge Order (Routine); Ordered 04/16/18 Ordered By: Ramob Boyd - Discharge Details Anticipated Discharge Date: 04/16/18 Discharge Comment: follow up with GI specialist in one week - Physicians Team Primary Care Provider: Gordon Silver Attending Provider: Rambo Boyd Other Providers: Michele Arvizu MD - Rxs /Orders / Referrals /Forms Prescriptions: Continue ciprofloxacin HCl [Cipro] 500 mg tablet 500 mg PO BID 7 Days Qty: 14 RF: 0 fluticasone-vilanterol [Breo Ellipta] 100-25 mcg/dose Blister With Device 1 inh INHALATION DAILY PRN (Reason: respiratory) metronidazole [Flagyl] 500 mg tablet 500 mg PO TID 7 Days Qty: 21 RF: 0 montelukast [Singulair] 10 mg Tablet 10 mg PO DAILY simvastatin 10 mg Tablet 10 mg PO QPM zolpidem [Ambien] 10 mg Tablet PRN (Reason: Sleep) Discontinued celecoxib [Celebrex] 200 mg Capsule 200 mg PO BID Referrals: Gordon Silver MD [Primary Care Provider] - See Instructions - Discharge Instructions Patient Printed Instructions: Diverticulitis (DC), Diverticulitis Diet (ED), Fall Prevention (DC) Additional Instructions: Take medications as directed. Keep or make your follow up appointments as recommended. - Post Discharge Care Plan Care Plan Goals: Your Health Problems: Goals to Promote Your Health: * To prevent worsening of your condition * To maintain your health at the optimal level Directions to Meet Your Goals: * Take your medications as prescribed * Follow your dietary instruction * Follow activity as directed * Keep your appointments as scheduled * Take your immunizations and boosters as scheduled * If your symptoms worsen call your PCP * If no PCP go to Urgent Care or Emergency Room Smoking is dangerous to your health. Avoid second hand smoke. You may reach the 24-hour crisis hotline for domestic abuse at .
--- NOTE | 2018-04-16 14:40 | P.PNCS ---
Subjective Colorectal Surgery Post Op Day #: 0 Interval history: afebrile, VSS UO good less nausea decr pain Objective Result Diagrams: 04/15/18 05:22 04/12/18 04:11 Objective Remarks: Pe alert Abd - soft, less tender LLQ, no mass, min tympany Assessment and Plan - Plan Imp: Diverticulitis - small abscess should respond to Ab's, no drainable abscess now adv diet Decr IVF rto if DC'd home may switch to PO ab's tomorrow - DC cipro/flagyl, try Keflex
== END 2018-04-16 16:04 | disposition home or self-care (01) ==
LOC: NEDDLT 06:58 → N06 13:54
PROVIDERS: ADMIT Internal Medicine; ATTEND Internal Medicine